=== PATIENT | female | born 1945 | race Asian ===

== ENCOUNTER → 2016-10-10 | Outpatient (CLI) | payer MEDICARE | END | disposition home or self-care (01) | LOC: CVU 09:49 | PROVIDERS: ATTEND Internal Medicine Cardiovascular Disease | DX: I65.23 Occlusion and stenosis of bilateral carotid arteries (principal); E78.5 Hyperlipidemia, unspecified; I10 Essential (primary) hypertension; I35.0 Nonrheumatic aortic (valve) stenosis | CPT/HCPCS: 93880 ==

== ENCOUNTER → 2017-11-27 | Outpatient (CLI) | payer MEDICARE | END | disposition home or self-care (01) | LOC: CVU 10:10 | PROVIDERS: ATTEND Internal Medicine Cardiovascular Disease | DX: I35.2 Nonrheumatic aortic (valve) stenosis with insufficiency (principal); I10 Essential (primary) hypertension; R06.02 Shortness of breath | CPT/HCPCS: 93306 ==

== ENCOUNTER 2018-01-21 08:02 | Day surgery (SDC) | payer MEDICARE ==
[~2018-01-21] VITALS: Ht 152.4 cm; Wt 66.8 kg
[2018-01-21 08:30] VITALS: BP 174/87
[2018-01-21] MEDS ORDERED: LABE100T3 PO (08:37)
[2018-01-21] MEDS ORDERED: MULT-6 PO (08:37)
[2018-01-21] MEDS ORDERED: AMLO5TAB2 PO (08:37)
[2018-01-21 08:54] LABS: BASOPHILS # (AUTO) 0.04 x10^3/uL (0-0.1); BASOPHILS % (AUTO) 1 % (0-1); EOSINOPHILS # (AUTO) 0.18 x10^3/uL (0-0.4); EOSINOPHILS % (AUTO) 3 % (1-7); LYMPHOCYTES # (AUTO) 2.56 x10^3/uL (1-3.4); LYMPHOCYTES % (AUTO) 41 % (22-44); MD NO; MEAN CORPUSCULAR HEMOGLOBIN 31.8 pg (27.0-34.8); MEAN CORPUSCULAR HGB CONC 34.3 g/dL (32.4-35.8); MEAN CORPUSCULAR VOLUME 92.7 fL (80-100); MEAN PLATELET VOLUME 8.9 fL (7.4-10.4); MONOCYTES % (AUTO) 8 % (2-9); NEUTROPHILS # (AUTO) 2.96 x10^3/uL (1.8-6.8); NEUTROPHILS % (AUTO) 48 % (42-75); PLATELET COUNT 255 x10^3/uL (130-400); RED BLOOD COUNT 4.94 x10^6/uL (3.82-5.3); RED CELL DISTRIBUTION WIDTH 13.6 % (9.6-15.2)
[2018-01-21 09:05] LABS: ANION GAP 9 mmol/L (5-15); CALCIUM 9.2 mg/dL (8.5-10.1); CHLORIDE 102 mmol/L (98-107); CREATININE 0.81 mg/dL (0.55-1.02)
[2018-01-21] MEDS ORDERED: FENTANYL PF 100 MCG/2ML ONE (09:58)
[2018-01-21] MEDS ORDERED: MIDAZOLAM 1 MG/ML, 5ML ONE (09:59)
[2018-01-21] MEDS ORDERED: LIDOCAINE-MPF 2% ,5ML ONE (09:59)
== END 2018-01-21 14:20 | disposition home or self-care (01) ==
LOC: CACL 08:02
PROVIDERS: ATTEND Internal Medicine Cardiovascular Disease
DX: I25.10 Atherosclerotic heart disease of native coronary artery without angina pectoris (principal); I10 Essential (primary) hypertension; E78.5 Hyperlipidemia, unspecified; I35.0 Nonrheumatic aortic (valve) stenosis; M10.9 Gout, unspecified
CPT/HCPCS: 36415; 80048; 85025; 93454; 99156; C1760; C1894; J2250; J3010; J3490; Q9967

== ENCOUNTER 2018-02-06 10:25 | Day surgery (SDC) | payer MEDICARE ==
[~2018-02-06] VITALS: Ht 152.4 cm; Wt 66.8 kg
[~2018-02-06 10:25] MED LIST: AMLO5TAB2 PO; LABE100T6 PO; MULT-6 PO
[2018-02-06 11:06] VITALS: BP 173/95
[2018-02-06] MEDS ORDERED: SODIUM CHLORIDE 0.9% 1,000 ML IV SCH (11:30)
[2018-02-06] MEDS ORDERED: PROPOFOL 10 MG/ML, 20ML ONE (12:32)
== END 2018-02-06 14:17 | disposition home or self-care (01) ==
LOC: CACL 10:25
PROVIDERS: ATTEND Internal Medicine Cardiovascular Disease
DX: I51.7 Cardiomegaly (principal); I10 Essential (primary) hypertension; I25.10 Atherosclerotic heart disease of native coronary artery without angina pectoris; M10.9 Gout, unspecified; E78.5 Hyperlipidemia, unspecified; I35.0 Nonrheumatic aortic (valve) stenosis
CPT/HCPCS: 93312; 93325; J2704

== ENCOUNTER 2018-10-08 13:20 | Inpatient (IN) | payer MEDICARE ==
[~2018-10-08] VITALS: Ht 152.4 cm; Wt 67.9 kg
[~2018-10-08 13:20] MED LIST changes: +AMIO200T42 PO; +AMLO-150 PO; -AMLO5TAB2 PO; +ASPI81TA45 PO; +FURO-93 PO; +POTA10TA5 PO; +TRAM50TA2 PO; +WARF2.5T PO
--- NOTE | 2018-10-08 13:56 | NUR ---
pt to ed fro admit after referral from cards. pt has been wearing monitor and cards has noticed intermittent bradycardia. pt reports associated fatigue. pt had avr on 07/30/2018. connected to monitor. vss. pa to bedside for assessment awaiting orders.
--- NOTE | 2018-10-08 14:22 | NUR ---
pt resting in room with family at bedside. iv established and labs drawn. awaiting results. no needs.[facility].
[2018-10-08 14:24] LABS: BASOPHILS # (AUTO) 0.06 x10^3/uL (0-0.1); BASOPHILS % (AUTO) 1 % (0-1); EOSINOPHILS # (AUTO) 0.14 x10^3/uL (0-0.4); EOSINOPHILS % (AUTO) 2 % (1-7); LYMPHOCYTES # (AUTO) 2.43 x10^3/uL (1-3.4); LYMPHOCYTES % (AUTO) 35 % (22-44); MD NO; MEAN CORPUSCULAR HEMOGLOBIN 28.6 pg (27.0-34.8); MEAN CORPUSCULAR HGB CONC 32.5 g/dL (32.4-35.8); MEAN CORPUSCULAR VOLUME 87.8 fL (80-100); MEAN PLATELET VOLUME 8.7 fL (7.4-10.4); MONOCYTES # (AUTO) 0.67 x10^3/uL (0.2-0.8); MONOCYTES % (AUTO) 10 % (2-9); NEUTROPHILS # (AUTO) 3.59 x10^3/uL (1.8-6.8); NEUTROPHILS % (AUTO) 52 % (42-75); PLATELET COUNT 317 x10^3/uL (130-400); RED BLOOD COUNT 5.09 x10^6/uL (3.82-5.3); RED CELL DISTRIBUTION WIDTH 15.7 % (9.6-15.2)
[2018-10-08 14:37] LABS: ALBUMIN 3.9 g/dL (3.4-5.0); ANION GAP 7 mmol/L (5-15); CHLORIDE 103 mmol/L (98-107); CREATININE 1.48 mg/dL (0.55-1.02)
[2018-10-08 14:41] LABS: TROPONIN I < 0.015 ng/mL (0.000-0.045)
--- NOTE | 2018-10-08 15:25 | NUR ---
pt resting in room with family at bedside. no needs. call light wtihin reach. awaiting bed assignment.
[2018-10-08 16:20] LABS: INTERNATIONAL NORMALIZED RATIO 1.92 (0.93-1.1); PROTHROMBIN TIME 19.7 Seconds (9.6-11.5)
[2018-10-08] MEDS ORDERED: ONDANSETRON ODT 4 MG PO PRN (16:30)
[2018-10-08] MEDS ORDERED: ONDANSETRON 2MG/ML, 2ML IVPush PRN (16:30)
[2018-10-08 17:00] VITALS: BP 163/77
[2018-10-08 17:04] LABS: THYROID STIMULATING HORMONE 2.24 mIU/L (0.358-3.740)
[2018-10-08] MEDS ORDERED: WARFARIN 2.5 MG TABLET PO-COUM SCH (18:00)
[2018-10-08 19:20] VITALS: BP 137/73
[2018-10-08] MEDS: AMLODIPINE 5 MG TABLET PO SCH (21:04)
[2018-10-08 22:11] VITALS: BP 161/73
[2018-10-08] MEDS ORDERED: ATROPINE SYRINGE 0.1 MG/ML, 10ML IVPush PRN (23:00)
[2018-10-09 01:19] VITALS: BP 150/79
[2018-10-09 06:13] LABS: BASOPHILS # (AUTO) 0.06 x10^3/uL (0-0.1); BASOPHILS % (AUTO) 1 % (0-1); EOSINOPHILS # (AUTO) 0.23 x10^3/uL (0-0.4); EOSINOPHILS % (AUTO) 4 % (1-7); LYMPHOCYTES % (AUTO) 40 % (22-44); MD NO; MEAN CORPUSCULAR HEMOGLOBIN 29.5 pg (27.0-34.8); MEAN CORPUSCULAR HGB CONC 33.4 g/dL (32.4-35.8); MEAN CORPUSCULAR VOLUME 88.1 fL (80-100); MEAN PLATELET VOLUME 8.6 fL (7.4-10.4); MONOCYTES # (AUTO) 0.59 x10^3/uL (0.2-0.8); MONOCYTES % (AUTO) 11 % (2-9); NEUTROPHILS # (AUTO) 2.28 x10^3/uL (1.8-6.8); NEUTROPHILS % (AUTO) 43 % (42-75); PLATELET COUNT 298 x10^3/uL (130-400); RED BLOOD COUNT 4.93 x10^6/uL (3.82-5.3); RED CELL DISTRIBUTION WIDTH 15.8 % (9.6-15.2)
[2018-10-09 06:14] LABS: CHLORIDE 105 mmol/L (98-107)
[2018-10-09 06:22] LABS: ALANINE AMINOTRANSFERASE 35 U/L (12-78); ALBUMIN 3.3 g/dL (3.4-5.0); ALKALINE PHOSPHATASE 70 U/L (45-117); ANION GAP 7 mmol/L (5-15); BILIRUBIN,TOTAL 0.4 mg/dL (0.2-1.0); CALCIUM 8.8 mg/dL (8.5-10.1); CREATININE 0.98 mg/dL (0.55-1.02); TOTAL PROTEIN 7.3 g/dL (6.4-8.2)
[2018-10-09 07:28] VITALS: BP 155/64
[2018-10-09] MEDS: AMLODIPINE 5 MG TABLET PO SCH ×2 (08:36→19:52)
[2018-10-09] MEDS: ASPIRIN 81 MG TABLET EC PO SCH (08:36)
[2018-10-09] MEDS: MULTIVITAMIN 1 TABLET PO SCH (08:36)
[2018-10-09] MEDS ORDERED: CEFAZOLIN PMX 1GM/50ML 50 ML IVPB ONE (10:00)
[2018-10-09 10:07] LABS: INTERNATIONAL NORMALIZED RATIO 2.04 (0.93-1.1); PROTHROMBIN TIME 20.8 Seconds (9.6-11.5)
[2018-10-09] MEDS: SODIUM CHLORIDE 0.9% 1,000 ML IV SCH (10:29)
[2018-10-09 12:41] VITALS: BP 147/54
[2018-10-09 18:39] VITALS: BP 158/63
[2018-10-10] VITALS (11 sets, daily range): BP systolic 122–172; BP diastolic 54–74
[2018-10-10] MEDS: SODIUM CHLORIDE 0.9% 1,000 ML IV SCH ×4 (01:43→17:43)
[2018-10-10 06:57] LABS: INTERNATIONAL NORMALIZED RATIO 1.85 (0.93-1.1)
[2018-10-10] MEDS ORDERED: FENTANYL PF 100 MCG/2ML ONE (16:10)
[2018-10-10] MEDS ORDERED: MIDAZOLAM 1 MG/ML, 5ML ONE (16:10)
[2018-10-10] MEDS ORDERED: LIDOCAINE 2%, 20ML ONE (16:10)
[2018-10-10] MEDS ORDERED: CEFAZOLIN 1,000 MG ONE (16:11)
[2018-10-10] MEDS: MULTIVITAMIN 1 TABLET PO SCH (17:55)
[2018-10-10] MEDS: ASPIRIN 81 MG TABLET EC PO SCH (17:55)
[2018-10-10] MEDS: AMLODIPINE 5 MG TABLET PO SCH ×2 (17:55→20:18)
[2018-10-10] MEDS ORDERED: HYDROcodone/APAP 5/325 TABLET PO PRN (18:30)
[2018-10-10] MEDS ORDERED: HOLD MEDICATION MC PRN (18:30)
[2018-10-10] MEDS ORDERED: ACETAMINOPHEN 325 MG TABLET ONE (20:13)
[2018-10-10] MEDS ORDERED: ACETAMINOPHEN 325 MG TABLET PO PRN (20:30)
[2018-10-10] MEDS ORDERED: SODIUM CHLORIDE FLUSH 10ML SYR IVF SCH (21:00)
[2018-10-11] MEDS: CEFAZOLIN PMX 1GM/50ML 50 ML IVPB SCH ×2 (00:12→09:24)
[2018-10-11 01:19] VITALS: BP 128/74
[2018-10-11 05:30] LABS: BASOPHILS # (AUTO) 0.04 x10^3/uL (0-0.1); BASOPHILS % (AUTO) 1 % (0-1); EOSINOPHILS # (AUTO) 0.21 x10^3/uL (0-0.4); EOSINOPHILS % (AUTO) 3 % (1-7); LYMPHOCYTES % (AUTO) 25 % (22-44); MD NO; MEAN CORPUSCULAR HGB CONC 33.1 g/dL (32.4-35.8); MEAN CORPUSCULAR VOLUME 87.6 fL (80-100); MEAN PLATELET VOLUME 8.7 fL (7.4-10.4); MONOCYTES # (AUTO) 0.72 x10^3/uL (0.2-0.8); MONOCYTES % (AUTO) 11 % (2-9); NEUTROPHILS # (AUTO) 3.79 x10^3/uL (1.8-6.8); NEUTROPHILS % (AUTO) 60 % (42-75); PLATELET COUNT 257 x10^3/uL (130-400); RED BLOOD COUNT 4.87 x10^6/uL (3.82-5.3); RED CELL DISTRIBUTION WIDTH 15.7 % (9.6-15.2)
[2018-10-11 05:44] LABS: CHLORIDE 107 mmol/L (98-107)
[2018-10-11 05:48] LABS: ANION GAP 4 mmol/L (5-15); CALCIUM 8.6 mg/dL (8.5-10.1); CREATININE 0.96 mg/dL (0.55-1.02)
[2018-10-11 06:42] VITALS: BP 144/70
[2018-10-11] MEDS: AMLODIPINE 5 MG TABLET PO SCH (09:14)
[2018-10-11] MEDS: ASPIRIN 81 MG TABLET EC PO SCH (09:14)
[2018-10-11] MEDS: MULTIVITAMIN 1 TABLET PO SCH (09:14)
[2018-10-11] MEDS ORDERED: ACET325T14 PO (11:07)
== END 2018-10-11 13:42 | disposition home health service (06) | DRG 242 ==
LOC: ED 14:33 → EDIP 15:39 → 5SO 16:41 → DCLOUNGE 10-11 13:28
PROVIDERS: ADMIT Internal Medicine; ATTEND Internal Medicine
PROC: 02HK3JZ Insertion of Pacemaker Lead into Right Ventricle, Percutaneous Approach (ICD-10-PCS; principal; 2018-10-10)
PROC: 0JH606Z Insertion of Pacemaker, Dual Chamber into Chest Subcutaneous Tissue and Fascia, Open Approach (ICD-10-PCS; 2018-10-10)
PROC: 02H63JZ Insertion of Pacemaker Lead into Right Atrium, Percutaneous Approach (ICD-10-PCS; 2018-10-10)
PROC: B5171ZZ Fluoroscopy of Left Subclavian Vein using Low Osmolar Contrast (ICD-10-PCS; 2018-10-10)
PROC: 30233K1 Transfusion of Nonautologous Frozen Plasma into Peripheral Vein, Percutaneous Approach (ICD-10-PCS; 2018-10-10)
DX: I49.5 Sick sinus syndrome (principal); N17.0 Acute kidney failure with tubular necrosis; D68.69 Other thrombophilia; I50.32 Chronic diastolic (congestive) heart failure; E78.5 Hyperlipidemia, unspecified; I11.0 Hypertensive heart disease with heart failure; I35.0 Nonrheumatic aortic (valve) stenosis; I48.0 Paroxysmal atrial fibrillation; Z82.49 Family history of ischemic heart disease and other diseases of the circulatory system; Z79.01 Long term (current) use of anticoagulants; Z87.891 Personal history of nicotine dependence; Z95.2 Presence of prosthetic heart valve; Z79.82 Long term (current) use of aspirin
CPT/HCPCS: 33208; 36005; 36415; 71045; 80048; 80053; 82040; 83735; 83880; 84100; 84443; 84484; 85025; 85610; 93005; 99156; 99157; 99285; C1779; C1785; C1892; G0378; J0690; J2250; J3010; J7030; P9017; Q9967

== ENCOUNTER 2019-02-12 09:27 | Outpatient (CLI) | payer MEDICARE | END 2019-02-12 23:59 | disposition home or self-care (01) | LOC: CFH 09:27 | PROVIDERS: ATTEND Internal Medicine Cardiovascular Disease | DX: I08.1 Rheumatic disorders of both mitral and tricuspid valves (principal); I10 Essential (primary) hypertension; Z95.2 Presence of prosthetic heart valve | CPT/HCPCS: 93306 ==

== ENCOUNTER → 2020-11-02 | Outpatient (CLI) | payer MEDICARE ==
[~2020-11-02] MED LIST changes: +ACET325T14 PO; +ASPI-496 PO; +LOSA100T14 PO; -WARF2.5T PO; +WARF2.5T2 PO
== END | disposition home or self-care (01) ==
LOC: CFH 12:46
PROVIDERS: ATTEND Internal Medicine Cardiovascular Disease
DX: I36.1 Nonrheumatic tricuspid (valve) insufficiency (principal)
CPT/HCPCS: 93306